=== PATIENT | female | born 1945 | race Caucasian/White ===

== ENCOUNTER → 2016-07-12 | Outpatient (CLI) | payer MEDICARE, OTHER ==
--- NOTE | 2016-07-12 11:46 | MM ---
Reason for exam: history of breast cancer, conservation therapy. Last mammogram was performed 1 year ago. History: Patient is postmenopausal and has history of breast cancer at age 60. Family history of breast cancer in sister at age 64, premenopausal breast cancer in sister at age 35, and breast cancer in sister at age 60. Benign left mammotome panel of the left breast, June 09, 2013. Benign left mammotome panel of the left breast, May 01, 2012. Benign cyst aspiration of the left breast, October 31, 2005. Lumpectomy of the left breast, March 10, 2005. Malignant left mammotome panel of the left breast, February 13, 2005. Radiation therapy, 2004. Radiation therapy of the left breast, 2004. Took hormonal contraceptives for 6 months beginning at age 26. Took estrogen for 15 years beginning at age 45. Took tamoxifen for 5 years beginning at age 60. Physical Findings: Nurse did not find any significant physical abnormalities on exam. MG 3D Diag Mammo W/Cad DIPESH Bilateral CC and MLO view(s) were taken. Prior study comparison: July 12, 2015, bilateral MG 3d diag mammo w/cad DIPESH. July 07, 2014, bilateral MG diagnostic mammo w CAD DIPESH. The breast tissue is heterogeneously dense. This may lower the sensitivity of mammography. Previous mammotome biopsy in the left breast x 3. Post lumpectomy changes in the left breast. No significant new findings when compared with previous films. These results were verbally communicated with the patient and result sheet given to the patient on 07/12/16. ASSESSMENT: Benign, BI-RAD 2 RECOMMENDATION: Routine screening mammogram of both breasts in 1 year.
== END | disposition home or self-care (01) ==
LOC: RADMAMWWP 10:42
PROVIDERS: ATTEND Surgery
DX: Z08 Encounter for follow-up examination after completed treatment for malignant neoplasm (principal); Z85.3 Personal history of malignant neoplasm of breast
CPT/HCPCS: G0204; G0279

== ENCOUNTER → 2017-08-06 | Outpatient (CLI) | payer MEDICARE ==
--- NOTE | 2017-08-07 09:50 | MM ---
Reason for exam: screening (asymptomatic). Last mammogram was performed 1 year and 1 month ago. History: Patient is postmenopausal and has history of breast cancer at age 60. Family history of breast cancer in sister at age 64, premenopausal breast cancer in sister at age 35, and breast cancer in sister at age 60. Benign left mammotome panel of the left breast, June 09, 2013. Benign left mammotome panel of the left breast, May 01, 2012. Benign cyst aspiration of the left breast, October 31, 2005. Lumpectomy of the left breast, March 10, 2005. Malignant left mammotome panel of the left breast, February 13, 2005. Radiation therapy, 2004. Radiation therapy of the left breast, 2004. Took hormonal contraceptives for 6 months beginning at age 26. Took estrogen for 15 years beginning at age 45. Took tamoxifen for 5 years beginning at age 60. Physical Findings: A clinical breast exam by your physician is recommended on an annual basis and results should be correlated with mammographic findings. MG 3D Screening Mammo W/Cad Bilateral CC and MLO view(s) were taken. Prior study comparison: July 12, 2016, bilateral MG 3d diag mammo w/cad DIPESH. July 12, 2015, bilateral MG 3d diag mammo w/cad DIPESH. The breast tissue is heterogeneously dense. This may lower the sensitivity of mammography. No suspicious abnormality. Left breast post therapy change. Multiple left breast biopsy markers noted. No significant changes when compared with prior studies. ASSESSMENT: Benign, BI-RAD 2 RECOMMENDATION: Routine screening mammogram of both breasts in 1 year.
== END | disposition home or self-care (01) ==
LOC: RADMAMWWP 09:46
PROVIDERS: ATTEND Psychiatry & Neurology Psychiatry
DX: Z12.31 Encounter for screening mammogram for malignant neoplasm of breast (principal)
CPT/HCPCS: 77063; 77067

== ENCOUNTER → 2018-08-07 | Outpatient (CLI) | payer MEDICARE ==
--- NOTE | 2018-08-09 10:32 | MM ---
Reason for exam: screening (asymptomatic). Last mammogram was performed 1 year ago. History: Patient is postmenopausal and has history of breast cancer at age 60. Family history of breast cancer in sister at age 64, premenopausal breast cancer in sister at age 35, and breast cancer in sister at age 60. Benign left mammotome panel of the left breast, June 09, 2013. Benign left mammotome panel of the left breast, May 01, 2012. Benign cyst aspiration of the left breast, October 31, 2005. Lumpectomy of the left breast, March 10, 2005. Malignant left mammotome panel of the left breast, February 13, 2005. Radiation therapy, 2004. Radiation therapy of the left breast, 2004. Took hormonal contraceptives for 6 months beginning at age 26. Took estrogen for 15 years beginning at age 45. Took tamoxifen for 5 years beginning at age 60. Physical Findings: A clinical breast exam by your physician is recommended on an annual basis and results should be correlated with mammographic findings. MG 3D Screening Mammo W/Cad Bilateral CC and MLO view(s) were taken. Prior study comparison: August 06, 2017, bilateral MG 3d screening mammo w/cad. July 12, 2016, bilateral MG 3d diag mammo w/cad DIPESH. The breast tissue is heterogeneously dense. This may lower the sensitivity of mammography. Previous mammotome biopsy in the left breast x 3. There is chronic nodularity in the right breast. Post surgical and post therapy changes in the left breast. No significant changes when compared with prior studies. ASSESSMENT: Benign, BI-RAD 2 RECOMMENDATION: Routine screening mammogram of both breasts in 1 year.
== END | disposition home or self-care (01) ==
LOC: RADMAMWWP 09:41
PROVIDERS: ATTEND Surgery
DX: Z12.31 Encounter for screening mammogram for malignant neoplasm of breast (principal); Z85.3 Personal history of malignant neoplasm of breast
CPT/HCPCS: 77063; 77067

== ENCOUNTER → 2019-10-23 | Outpatient (CLI) | payer MEDICARE ==
--- NOTE | 2019-10-27 10:37 | MM ---
Reason for exam: screening (asymptomatic). Last mammogram was performed 1 year and 2 months ago. History: Patient is postmenopausal and has history of breast cancer at age 60. Family history of breast cancer in sister at age 64, premenopausal breast cancer in sister at age 35, and breast cancer in sister at age 60. Benign left mammotome panel of the left breast, June 09, 2013. Benign left mammotome panel of the left breast, May 01, 2012. Benign cyst aspiration of the left breast, October 31, 2005. Lumpectomy of the left breast, March 10, 2005. Malignant left mammotome panel of the left breast, February 13, 2005. Radiation therapy, 2004. Radiation therapy of the left breast, 2004. Took hormonal contraceptives for 6 months beginning at age 26. Took estrogen for 15 years beginning at age 45. Took tamoxifen for 5 years beginning at age 60. Physical Findings: A clinical breast exam by your physician is recommended on an annual basis and results should be correlated with mammographic findings. MG 3D Screening Mammo W/Cad Bilateral CC and MLO view(s) were taken. Prior study comparison: August 07, 2018, bilateral MG 3d screening mammo w/cad. August 06, 2017, bilateral MG 3d screening mammo w/cad. The breast tissue is heterogeneously dense. This may lower the sensitivity of mammography. Finding #1: There is decreased in size a architectural distortion in the left breast consistent with known lumpectomy changes. Finding #2: There are typically benign dystrophic calcifications in both breasts. There is a chronic nodularity in the right breast. There is no discrete abnormality. ASSESSMENT: Benign, BI-RAD 2 RECOMMENDATION: Follow-up diagnostic mammogram of both breasts in 1 year.
== END | disposition home or self-care (01) ==
LOC: RADMAMWWP 10:08
PROVIDERS: ATTEND Surgery
DX: Z12.31 Encounter for screening mammogram for malignant neoplasm of breast (principal)
CPT/HCPCS: 77063; 77067

== ENCOUNTER → 2020-11-03 | Outpatient (CLI) | payer MEDICARE ==
--- NOTE | 2020-11-05 14:06 | MM ---
Reason for exam: screening (asymptomatic). Last mammogram was performed 1 year ago. History: Patient is postmenopausal and has history of breast cancer at age 60. Family history of breast cancer in sister at age 64, premenopausal breast cancer in sister at age 35, and breast cancer in sister at age 60. Benign left mammotome panel of the left breast, June 09, 2013. Benign left mammotome panel of the left breast, May 01, 2012. Benign cyst aspiration of the left breast, October 31, 2005. Lumpectomy of the left breast, March 10, 2005. Malignant left mammotome panel of the left breast, February 13, 2005. Radiation therapy, 2004. Radiation therapy of the left breast, 2004. Took hormonal contraceptives for 6 months beginning at age 26. Took estrogen for 15 years beginning at age 45. Took tamoxifen for 5 years beginning at age 60. Physical Findings: A clinical breast exam by your physician is recommended on an annual basis and results should be correlated with mammographic findings. MG 3D Screening Mammo W/Cad Bilateral CC and MLO view(s) were taken. Prior study comparison: October 23, 2019, bilateral MG 3d screening mammo w/cad. August 07, 2018, bilateral MG 3d screening mammo w/cad. The breast tissue is heterogeneously dense. This may lower the sensitivity of mammography. Left lumpectomy and radiation change are stable. Benign appearing scattered calcifications. No significant changes when compared with prior studies. ASSESSMENT: Benign, BI-RAD 2 RECOMMENDATION: Routine screening mammogram of both breasts in 1 year.
== END | disposition home or self-care (01) ==
LOC: RADMAMWWP 13:46
PROVIDERS: ATTEND Surgery
DX: Z12.31 Encounter for screening mammogram for malignant neoplasm of breast (principal); Z78.0 Asymptomatic menopausal state; Z85.3 Personal history of malignant neoplasm of breast; Z80.3 Family history of malignant neoplasm of breast
CPT/HCPCS: 77063; 77067

== ENCOUNTER → 2021-11-25 | Outpatient (CLI) | payer MEDICARE ==
--- NOTE | 2021-11-28 10:38 | MM ---
Reason for Exam: Screening (asymptomatic). Last mammogram was performed 1 year(s) and 1 month(s) ago. Patient History: Menarche at age 8. First Full-Term at age 23. Left ovary removed at age 47. Right ovary removed at age 47. Hysterectomy at age 47. Postmenopausal. Breast cancer, age 60. Estrogen, starting at age 45 for 15 years. Hormonal Contraceptives for 6 months from age 26 until age 26. Tamoxifen for 5 years from age 60 until age 65. 03/10/2005, Lumpectomy on the Left side. 06/09/2013, Benign Core Biopsy on the left side. 05/01/2012, Benign Core Biopsy on the left side. 02/13/2005, Malignant Core Biopsy on the left side. 2004, Radiation Therapy. 2004, Radiation Therapy on the left side. Sister had breast cancer, age 64. Sister had breast cancer, age 35. Sister had breast cancer, age 60. Prior Study Comparison: 08/07/2018 Bilateral Screening Mammogram, [facility]. 10/23/2019 Bilateral Screening Mammogram, [facility]. 11/03/2020 Bilateral Screening Mammogram, [facility]. Tissue Density: The breast tissue is heterogeneously dense. This may lower the sensitivity of mammography. Findings: Analyzed By CAD. Benign bilateral rounded necrosis calcifications. Some minimal secretory calcifications on the right. Postsurgical and posttreatment changes left breast with fat necrosis calcifications at the excisional site. Microclip left breast from prior biopsy. Chronic nodularity upper outer quadrant right breast is unchanged. No significant change from prior exams. Overall Assessment: Benign, BI-RAD 2 Management: Screening Mammogram of both breasts in 1 year. 1. Patient should continue monthly self breast exams. 2. A clinical breast exam by your physician is recommended on an annual basis. 3. This exam should not preclude additional follow-up of suspicious palpable abnormalities. Electronically signed and approved by: Maurilio Lo M.D. Radiologist
== END | disposition home or self-care (01) ==
LOC: RADMAMWWP 16:01
PROVIDERS: ATTEND Surgery
DX: Z12.31 Encounter for screening mammogram for malignant neoplasm of breast (principal); Z78.0 Asymptomatic menopausal state; Z80.3 Family history of malignant neoplasm of breast
CPT/HCPCS: 77063; 77067

== ENCOUNTER → 2022-12-28 | Outpatient (CLI) | payer MEDICARE ==
--- NOTE | 2022-12-29 09:47 | MM ---
Reason for Exam: Hx of breast cancer, conservation therapy. Last mammogram was performed 1 year(s) and 1 month(s) ago. Patient History: Menarche at age 8. First Full-Term at age 23. Left ovary removed at age 47. Right ovary removed at age 47. Hysterectomy at age 47. Postmenopausal. Breast cancer, left, age 60. Previous chest radiation therapy at age 60. Estrogen, starting at age 45 for 15 years. Hormonal Contraceptives for 6 months from age 26 until age 26. Tamoxifen for 5 years from age 60 until age 65. 10/31/2005, Benign Cyst Aspiration on the left side. 03/10/2005, Lumpectomy on the Left side. 06/09/2013, Benign Core Biopsy on the left side. 05/01/2012, Benign Core Biopsy on the left side. 02/13/2005, Malignant Core Biopsy on the left side. 2004, Radiation Therapy. 2004, Radiation Therapy on the left side. Sister had breast cancer, age 64. Sister had breast cancer, age 35. Sister had breast cancer, age 52. Sister had breast cancer, age 60. Prior Study Comparison: 07/12/2015 Bilateral Diagnostic Mammogram, [facility]. 07/12/2016 Bilateral Diagnostic Mammogram, [facility]. 08/06/2017 Bilateral Screening Mammogram, [facility]. 08/07/2018 Bilateral Screening Mammogram, [facility]. 10/23/2019 Bilateral Screening Mammogram, [facility]. 11/03/2020 Bilateral Screening Mammogram, [facility]. 11/25/2021 Bilateral MG 3D screening mammo w/cad, [facility]. Tissue Density: The breast tissue is heterogeneously dense. This may lower the sensitivity of mammography. Findings: Analyzed By CAD. Postsurgical change on the left with associated fat necrosis calcifications. 2 microclips are also present on the left from prior biopsies. There is chronic nodularity on the right. There is no suspicious group of microcalcifications or new suspicious mass in either breast. Overall Assessment: Benign, BI-RAD 2 Management: Screening Mammogram of both breasts in 1 year. . Patient should continue monthly self-breast exams. A clinical breast exam by your physician is recommended on an annual basis. This exam should not preclude additional follow-up of suspicious palpable abnormalities. Electronically signed and approved by: Maurilio Lo M.D. Radiologist
== END | disposition home or self-care (01) ==
LOC: RADMAMWWP 12:26
PROVIDERS: ATTEND Family Medicine
DX: Z12.31 Encounter for screening mammogram for malignant neoplasm of breast (principal); Z85.3 Personal history of malignant neoplasm of breast; Z80.3 Family history of malignant neoplasm of breast; Z78.0 Asymptomatic menopausal state
CPT/HCPCS: 77063; 77067

== ENCOUNTER → 2023-12-31 | Outpatient (CLI) | payer MEDICARE ==
--- NOTE | 2024-01-09 14:32 | MM ---
Reason for Exam: Screening (asymptomatic). Last screening mammogram was performed 12 month(s) ago. Patient History: Menarche at age 8. First Full-Term at age 23. Left ovary removed at age 47. Right ovary removed at age 47. Hysterectomy at age 47. Postmenopausal. Breast cancer, left, age 60. Previous chest radiation therapy at age 60. Estrogen, starting at age 45 for 15 years. Hormonal Contraceptives for 6 months from age 26 until age 26. Tamoxifen for 5 years from age 60 until age 65. 03/10/2005, Lumpectomy on the Left side. 06/09/2013, Benign Core Biopsy on the left side. 05/01/2012, Benign Core Biopsy on the left side. 02/13/2005, Malignant Core Biopsy on the left side. 2004, Radiation Therapy. 2004, Radiation Therapy on the left side. Sister had breast cancer, age 64. Sister had breast cancer, age 35. Sister had breast cancer, age 52. Sister had breast cancer, age 60. Prior Study Comparison: 11/03/2020 Bilateral Screening Mammogram, [facility]. 11/25/2021 Bilateral MG 3D screening mammo w/cad, [facility]. 12/28/2022 Bilateral MG 3D screening mammo w/cad, [facility]. Tissue Density: The breasts are heterogeneously dense, which may obscure small masses. Findings: Analyzed By CAD. Right breast: There is no suspicious group of microcalcifications or new suspicious mass. Benign-appearing calcifications right breast. Left breast: There is no suspicious group of microcalcifications or new suspicious mass. Benign-appearing calcifications left breast. Overall Assessment: Benign, BI-RAD 2 Management: Screening Mammogram of both breasts in [address] [facility] will attempt to contact patient to return for supplemental views and ultrasound if indicated. Patient should continue monthly self-breast exams. A clinical breast exam by your physician is recommended on an annual basis. This exam should not preclude additional follow-up of suspicious palpable abnormalities. Note on Janet scores and lifetime risk: 1. A Janet score greater than 3% is considered moderate risk. If this is the case, consider specialist referral to assess eligibility for a risk reducing agent. 2. If overall lifetime risk for the development of breast cancer is 20% or higher, the patient may qualify for future screening with alternating mammogram and breast MRI. Electronically signed and approved by: Jg Lauren DO
== END | disposition home or self-care (01) ==
LOC: RADMAMWWP 15:32
PROVIDERS: ATTEND Family Medicine
DX: Z12.31 Encounter for screening mammogram for malignant neoplasm of breast
CPT/HCPCS: 77063; 77067